=== PATIENT | female | born 1975 | race Caucasian/White ===

== ENCOUNTER 2016-07-17 13:06 | Emergency (ER) | payer OTHER ==
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
[2016-07-17] MEDS ORDERED: ONDANSETRON 4 MG TAB.RAPDIS PO ONE (14:57)
[2016-07-17 15:50] VITALS: BP 138/78
== END 2016-07-17 15:10 | disposition home or self-care (01) ==
LOC: ER 13:06
DX: H65.03 Acute serous otitis media, bilateral (principal); R11.0 Nausea; F17.200 Nicotine dependence, unspecified, uncomplicated
CPT/HCPCS: 99282; S0119

== ENCOUNTER 2016-11-18 08:43 | Emergency (ER) | payer SELFPAY ==
[2016-11-18 08:48] VITALS: BP 175/99
[2016-11-18] MEDS ORDERED: CLONIDINE HCL 0.1 MG TABLET PO ONE (09:14)
[2016-11-18] MEDS ORDERED: ONDANSETRON 4 MG TAB.RAPDIS PO ONE (09:14)
--- NOTE | 2016-11-18 09:16 | ER Document Report ---
HPI - HPI Patient complains to provider of: methadone withdrawal Onset: Other Onset/Duration: Gradual Quality of pain: No pain Pain Level: Denies Context: Patient presents complaining of anxiety due to impending methadone withdrawal. Patient states that she has been on methadone for 8 years and was due to get a refill of her medicine this morning. Patient states that she went to an office that she does not typically go to and they were unable to confirm her usual dose with her primary doctor. Patient states her primary doctor's office closed today due to the holiday. Patient complains of nausea and anxiety. Patient denies any vomiting or diarrhea. Associated Symptoms: Nausea, Other - Anxiety. denies: Vomiting Exacerbated by: Denies Relieved by: Denies Similar symptoms previously: Yes Recently seen / treated by doctor: No - ROS ROS below otherwise negative: Yes Systems Reviewed and Negative: Yes All other systems reviewed and negative - CONSTITUTIONAL Constitutional: DENIES: Fever, Chills - NEURO Neurology: DENIES: Headache, Weakness - CARDIOVASCULAR Cardiovascular: DENIES: Chest pain - GASTROINTESTINAL Gastrointestinal: REPORTS: Nausea. DENIES: Abdominal Pain, Patient vomiting, Diarrhea - REPRODUCTIVE Reproductive: DENIES: : - MUSCULOSKELETAL Musculoskeletal: DENIES: Extremity pain, Back Pain - DERM Skin Color: Normal Skin Problems: None Past Medical History - General Information source: Patient - Social History Smoking Status: Never Smoker Chew tobacco use (# tins/day): No Frequency of alcohol use: None Drug Abuse: None Family History: Reviewed & Not Pertinent Patient has suicidal ideation: No Patient has homicidal ideation: No Renal/ Medical History: Denies: Hx Peritoneal Dialysis Psychiatric Medical History: Reports: Hx Anxiety, Other - opiod addiction Past Surgical History: Reports: Hx Section, Hx Cholecystectomy - Immunizations Hx Diphtheria, Pertussis, Tetanus Vaccination: Yes Vertical Provider Document - CONSTITUTIONAL Agree With Documented VS: Yes Exam Limitations: No Limitations General Appearance: WD/WN, No Apparent Distress Notes: pt anxious - INFECTION CONTROL TRAVEL OUTSIDE OF THE [place] IN LAST 30 DAYS: No - HEENT HEENT: Atraumatic, Normocephalic - NECK Neck: Normal Inspection, Supple - RESPIRATORY Respiratory: Breath Sounds Normal, No Respiratory Distress O2 Sat by Pulse Oximetry: 97 - CARDIOVASCULAR Cardiovascular: Regular Rate, Regular Rhythm, No Murmur - MUSCULOSKELETAL/EXTREMETIES Musculoskeletal/Extremeties: MAEW - NEURO Level of Consciousness: Awake, Alert, Appropriate Motor/Sensory: No Motor Deficit - DERM Integumentary: Warm, Dry, No Rash Course - Re-evaluation Re-evalutation: 11/18/16 The patient has been informed that they may have pre-hypertension or hypertension based on a blood pressure reading in the emergency department. I recommend that patient call the primary care provider listed on their discharge instructions or a physician of their choice by this week to arrange follow-up for further evaluation of possible pre-hypertension or hypertension. - Vital Signs Vital signs: Temp Pulse Resp BP Pulse Ox 99.0 F 98 16 175/99 H 97 11/18/16 08:46 11/18/16 08:46 11/18/16 08:46 11/18/16 08:46 11/18/16 08:46 Discharge - Discharge Clinical Impression: Elevated blood pressure reading, Methadone withdrawal Condition: Stable Disposition: HOME, SELF-CARE Additional Instructions: Return immediately for any new or worsening symptoms Followup with your primary care provider, call tomorrow to make a followup appointment Prescriptions: Clonidine HCl [Catapres 0.1 mg Tablet] 0.1 mg PO Q8 PRN #15 tablet PRN Reason: Loperamide HCl [Loperamide] 2 mg PO Q6 PRN #15 tablet PRN Reason: Ondansetron HCl [Zofran 4 mg Tablet] 1 - 2 tab PO Q6 PRN #15 tablet PRN Reason: Forms: Elevated Blood Pressure Referrals: [facility] [Provider Group] - Follow up as needed
== END 2016-11-18 09:25 | disposition home or self-care (01) ==
LOC: ER 08:43
DX: F11.23 Opioid dependence with withdrawal (principal); F41.9 Anxiety disorder, unspecified; R11.0 Nausea; R03.0 Elevated blood-pressure reading, without diagnosis of hypertension
CPT/HCPCS: 99284; S0119